=== PATIENT | male | born 1930 ===

== ENCOUNTER 2016-11-01 09:51 | Emergency (ER) | payer SELFPAY ==
[~2016-11-01] VITALS: Ht 188 cm; Wt 93.0 kg
[2016-11-01] MEDS ORDERED: XARELTO10 MG PO (10:06)
[2016-11-01] MEDS ORDERED: LIPITOR40 MG PO (10:06)
[2016-11-01] MEDS ORDERED: NORTRIPTYLINE H10 MG PO (10:07)
[2016-11-01] MEDS ORDERED: METOPROLOL SUCC25 MG PO (10:07)
[2016-11-01] MEDS ORDERED: LANTUS100 UNITS/ SUB-Q (10:08)
== END 2016-11-01 10:29 | disposition home or self-care (01) ==
LOC: ED 09:51
DX: Z00.8 Encounter for other general examination (principal)